=== PATIENT | male | born 1955 | race Caucasian/White ===

== ENCOUNTER 2024-08-09 18:06 | Emergency (ER) | payer MEDICARE, OTHER ==
[~2024-08-09] VITALS: Ht 172.7 cm; Wt 68.0 kg
[2024-08-09 18:38] LABS: APPEARANCE,URINE CLEAR (CLEAR); BILIRUBIN,URINE NEGATIVE (NEGATIVE); BLOOD, URINE 1+ Ery/uL (NEGATIVE); COLOR,URINE YELLOW (YELLOW); KETONES,URINE NEGATIVE (NEGATIVE); LEUKOCYTE ESTERASE ,URINE NEGATIVE (NEGATIVE); NITRITE, URINE NEGATIVE (NEGATIVE); PROTEIN,URINE NEGATIVE (NEGATIVE); UGLUCOSE NEGATIVE (NEGATIVE); UROBILINOGEN,URINE 0.2 EU/dL (0.2)
[2024-08-09 18:48] LABS: ADD URINE CULTURE NO; BACTERIA,URINE None seen /HPF (None Seen); MUCUS,URINE Few /LPF (None Seen); SQUAMOUS EPITHELIAL CELL,UR 0-2 /HPF (None Seen); WBC,URINE 0-2 /HPF (0-3)
[2024-08-09 18:57] LABS: BASOPHILS # (AUTO) 0.1 K/uL (0.0-0.2); BASOPHILS % (AUTO) 0.7 % (0.0-2.0); EOSINOPHILS # (AUTO) 0.3 K/uL (0.0-0.7); EOSINOPHILS % (AUTO) 2.5 % (0.0-6.0); HEMATOCRIT 38 % (39-51); HEMOGLOBIN 12.9 g/dL (13.5-17.5); LYMPHOCYTES # (AUTO) 3.9 K/uL (0.8-4.8); LYMPHOCYTES % (AUTO) 37.8 % (20.0-44.0); MEAN CORPUSCULAR HEMOGLOBIN 29 PG (26.0-33.0); MEAN CORPUSCULAR HGB CONC 34 g/dl (31.0-36.0); MEAN CORPUSCULAR VOLUME 87 fL (80-96); MONOCYTES # (AUTO) 0.8 K/uL (0.1-1.30); MONOCYTES % (AUTO) 7.3 % (2.0-12.0); NEUTROPHILS # (AUTO) 5.3 K/uL (1.8-8.9); NEUTROPHILS % (AUTO) 51.7 % (43.0-81.0); PLATELET COUNT (AUTO) 282 K/uL (150-450); RED BLOOD CELL COUNT(AUTO) 4.39 MIL/uL (4.5-6.0); RED CELL DISTRIBUTION WIDTH 14.3 % (11.5-15.0); WHITE BLOOD COUNT (AUTO) 10.3 K/uL (4.3-11.0)
[2024-08-09 19:12] LABS: ALANINE AMINOTRANSFERASE 24 U/L (12-78); ALBUMIN 3.6 g/dL (3.4-5.0); ALKALINE PHOSPHATASE 120 U/L (46-116); ASPARTATE AMINOTRANSFERASE 20 U/L (15-37); BILIRUBIN,DIRECT 0.1 mg/dL (0.0-0.2); BILIRUBIN,TOTAL 0.3 mg/dL (0.2-1.0); CALCIUM, SERUM 9.1 mg/dL (8.5-10.1); CARBON DIOXIDE 30 mmol/L (21-32); CHLORIDE 104 mmol/L (98-107); CREATININE 0.9 mg/dL (0.6-1.3); GLUCOSE 96 mg/dL (74-106); POTASSIUM 4.4 mmol/L (3.5-5.1); SODIUM SERUM 141 mmol/L (136-145); TOTAL PROTEIN, SERUM 7.4 g/dL (6.4-8.2); UREA NITROGEN, BLOOD 26 mg/dL (7-18)
[2024-08-09 19:17] LABS: ACETAMINOPHEN <10 ug/ml (10-30); ALCOHOL, BLOOD < 3 mg/dL (0-10); SALICYLATE 1.7 mg/dL (2.8-20.0)
[2024-08-09 22:33] LABS: AMPHETAMINE, URINE NEGATIVE (NEGATIVE); BARBITURATE, URINE NEGATIVE (NEGATIVE); BENZODIAZEPINE, URINE NEGATIVE (NEGATIVE); CANNABINOID, URINE NEGATIVE (NEGATIVE); COCCAINE, URINE NEGATIVE (NEGATIVE); OPIATE, URINE NEGATIVE (NEGATIVE); PHENCYCLIDINE SCREEN,URINE NEGATIVE (NEGATIVE)
[2024-08-09] MEDS ORDERED: LORAZEPAM INJ 2 MG/ML VIAL ONE (23:51)
[2024-08-09] MEDS: LORAZEPAM INJ 2 MG/ML VIAL IM ONE (23:59)
[2024-08-10 05:37] VITALS: TEMP 98.2
[2024-08-10] MEDS ORDERED: NICO1PAT45 TD (08:47)
[2024-08-10] MEDS ORDERED: QUET25TA PO (08:47)
[2024-08-10] MEDS ORDERED: MELA5TAB PO (08:47)
[2024-08-10] MEDS ORDERED: OLAN5TAB3 PO (08:47)
[2024-08-10] MEDS ORDERED: ACET-868 PO (08:47)
[2024-08-10] MEDS ORDERED: POLY17PO4 PO (08:47)
[2024-08-10] MEDS ORDERED: SENN8.6T19 PO (08:47)
[2024-08-10 10:16] VITALS: BP 122/76; O2SAT 97
== END 2024-08-10 10:18 ==
LOC: ER 18:15
DX: R45.6 Violent behavior (principal); F03.90 Unspecified dementia, unspecified severity, without behavioral disturbance, psychotic disturbance, mood disturbance, and anxiety; Z20.822 Contact with and (suspected) exposure to COVID-19
CPT/HCPCS: 99285; 96372; 85025; 80048; 80076; 81001; 36415; 87426; 80143; 80320; 80307; J2060; G0480

== ENCOUNTER 2024-09-12 13:18 | Inpatient (IN) | payer MEDICARE, OTHER ==
[~2024-09-12] VITALS: Ht 182.9 cm; Wt 72.6 kg
[~2024-09-12 13:18] MED LIST: ACET-868 PO; MELA5TAB PO; NICO1PAT45 TD; OLAN5TAB3 PO; POLY17PO4 PO; QUET25TA PO; SENN8.6T19 PO
[2024-09-12] MEDS ORDERED: LORA-258 PO (14:21)
[2024-09-12] MEDS ORDERED: DIVA-76 PO (14:21)
[2024-09-12] MEDS ORDERED: MAG-5 PO (14:21)
[2024-09-12] MEDS ORDERED: ZOLP5TAB2 PO (14:21)
[2024-09-12] MEDS ORDERED: MAGN400O6 PO (14:21)
[2024-09-12 14:59] LABS: BASOPHILS # (AUTO) 0.1 K/uL (0.0-0.2); BASOPHILS % (AUTO) 0.8 % (0.0-2.0); EOSINOPHILS # (AUTO) 0.3 K/uL (0.0-0.7); EOSINOPHILS % (AUTO) 3.4 % (0.0-6.0); HEMATOCRIT 40 % (39-51); HEMOGLOBIN 13.5 g/dL (13.5-17.5); LYMPHOCYTES # (AUTO) 3.7 K/uL (0.8-4.8); LYMPHOCYTES % (AUTO) 40.6 % (20.0-44.0); MEAN CORPUSCULAR HEMOGLOBIN 30 PG (26.0-33.0); MEAN CORPUSCULAR HGB CONC 34 g/dl (31.0-36.0); MEAN CORPUSCULAR VOLUME 88 fL (80-96); MONOCYTES # (AUTO) 0.5 K/uL (0.1-1.30); MONOCYTES % (AUTO) 5.7 % (2.0-12.0); NEUTROPHILS # (AUTO) 4.5 K/uL (1.8-8.9); NEUTROPHILS % (AUTO) 49.5 % (43.0-81.0); PLATELET COUNT (AUTO) 270 K/uL (150-450); RED BLOOD CELL COUNT(AUTO) 4.58 MIL/uL (4.5-6.0); RED CELL DISTRIBUTION WIDTH 14.5 % (11.5-15.0)
[2024-09-12 15:05] LABS: CALCIUM, SERUM 9.4 mg/dL (8.5-10.1); CARBON DIOXIDE 30 mmol/L (21-32); CHLORIDE 101 mmol/L (98-107); CREATININE 0.8 mg/dL (0.6-1.3); GLUCOSE 75 mg/dL (74-106); POTASSIUM 4.2 mmol/L (3.5-5.1); SODIUM SERUM 137 mmol/L (136-145); UREA NITROGEN, BLOOD 19 mg/dL (7-18)
[2024-09-12 15:12] LABS: ALANINE AMINOTRANSFERASE 30 U/L (12-78); ALBUMIN 3.8 g/dL (3.4-5.0); ALCOHOL, BLOOD < 3 mg/dL (0-10); ALKALINE PHOSPHATASE 124 U/L (46-116); ASPARTATE AMINOTRANSFERASE 23 U/L (15-37); BILIRUBIN,DIRECT 0.1 mg/dL (0.0-0.2); BILIRUBIN,TOTAL 0.4 mg/dL (0.2-1.0); TOTAL PROTEIN, SERUM 7.6 g/dL (6.4-8.2)
[2024-09-12 15:13] LABS: ACETAMINOPHEN <10 ug/ml (10-30); SALICYLATE 1.3 mg/dL (2.8-20.0)
[2024-09-12 16:23] LABS: APPEARANCE,URINE CLEAR (CLEAR); BILIRUBIN,URINE NEGATIVE (NEGATIVE); BLOOD, URINE NEGATIVE Ery/uL (NEGATIVE); COLOR,URINE YELLOW (YELLOW); KETONES,URINE NEGATIVE (NEGATIVE); LEUKOCYTE ESTERASE ,URINE NEGATIVE (NEGATIVE); NITRITE, URINE NEGATIVE (NEGATIVE); PH,URINE 6.5 (5.0-8.0); PROTEIN,URINE NEGATIVE (NEGATIVE); UGLUCOSE NEGATIVE (NEGATIVE); UROBILINOGEN,URINE 0.2 EU/dL (0.2)
[2024-09-12 16:52] LABS: AMPHETAMINE, URINE NEGATIVE (NEGATIVE); BARBITURATE, URINE NEGATIVE (NEGATIVE); BENZODIAZEPINE, URINE NEGATIVE (NEGATIVE); CANNABINOID, URINE NEGATIVE (NEGATIVE); COCCAINE, URINE NEGATIVE (NEGATIVE); OPIATE, URINE NEGATIVE (NEGATIVE); PHENCYCLIDINE SCREEN,URINE NEGATIVE (NEGATIVE)
[2024-09-12] MEDS ORDERED: ACETAMINOPHEN 325 MG TABLET PO PRN (21:30)
[2024-09-12] MEDS ORDERED: MAG HYDROX/AL HYDROX/SIMETH 30 ML UDC PO PRN (21:30)
[2024-09-12] MEDS ORDERED: LORAZEPAM 0.5 MG TABLET PO PRN (21:30)
[2024-09-12] MEDS ORDERED: MAGNESIUM HYDROXIDE 30 ML UDC PO PRN (21:30)
[2024-09-12] MEDS: BLOOD SUGAR DIAGNOSTIC 1 EACH STRIP IN ONE (21:53)
[2024-09-13] MEDS: TEMAZEPAM 7.5 MG CAPSULE PO PRN (00:43)
[2024-09-13 07:39] LABS: BASOPHILS # (AUTO) 0.1 K/uL (0.0-0.2); BASOPHILS % (AUTO) 0.8 % (0.0-2.0); EOSINOPHILS # (AUTO) 0.5 K/uL (0.0-0.7); EOSINOPHILS % (AUTO) 6.6 % (0.0-6.0); HEMATOCRIT 41 % (39-51); HEMOGLOBIN 13.8 g/dL (13.5-17.5); LYMPHOCYTES # (AUTO) 2.5 K/uL (0.8-4.8); MEAN CORPUSCULAR HEMOGLOBIN 29 PG (26.0-33.0); MEAN CORPUSCULAR HGB CONC 34 g/dl (31.0-36.0); MEAN CORPUSCULAR VOLUME 88 fL (80-96); MONOCYTES # (AUTO) 0.6 K/uL (0.1-1.30); NEUTROPHILS # (AUTO) 3.5 K/uL (1.8-8.9); NEUTROPHILS % (AUTO) 49.6 % (43.0-81.0); PLATELET COUNT (AUTO) 266 K/uL (150-450); RED BLOOD CELL COUNT(AUTO) 4.69 MIL/uL (4.5-6.0); WHITE BLOOD COUNT (AUTO) 7.1 K/uL (4.3-11.0)
[2024-09-13 07:53] LABS: CALCIUM, SERUM 8.9 mg/dL (8.5-10.1); CREATININE 0.8 mg/dL (0.6-1.3)
[2024-09-13 08:00] VITALS: BP 127/63; TEMP 97.6; O2SAT 98
[2024-09-13] MEDS: OLANZAPINE ZYDIS 5 MG TAB.RAPDIS PO SCH ×2 (09:00→21:32)
[2024-09-13] MEDS: OXCARBAZEPINE 150 MG TABLET PO SCH (09:00)
[2024-09-13 16:00] VITALS: BP 106/77; TEMP 97.9; O2SAT 98
[2024-09-13 20:00] VITALS: BP 123/66; TEMP 98.1; O2SAT 98
[2024-09-13 21:02] VITALS: BP 123/66; TEMP 98.1; O2SAT 98
[2024-09-13] MEDS: OLANZAPINE 10 MG VIAL IM STA (22:17)
[2024-09-14] MEDS: TEMAZEPAM 7.5 MG CAPSULE PO PRN (00:52)
[2024-09-14] MEDS: LORAZEPAM 0.5 MG TABLET PO PRN (03:03)
[2024-09-14 08:00] VITALS: BP 119/76; TEMP 97.9; O2SAT 98
[2024-09-14 16:00] VITALS: BP 135/83; TEMP 98.1; O2SAT 97
[2024-09-14] MEDS: OXCARBAZEPINE 150 MG TABLET PO SCH (17:20)
[2024-09-14 20:32] VITALS: BP 129/81; TEMP 98.1; O2SAT 97
[2024-09-15 08:00] VITALS: BP 104/73; TEMP 97.7; O2SAT 98
[2024-09-15 15:53] VITALS: BP 98/80; TEMP 97.8; O2SAT 98
[2024-09-15 20:19] VITALS: BP 108/65; TEMP 97.5; O2SAT 97
[2024-09-16 08:00] VITALS: BP 128/78; TEMP 98.7; O2SAT 97
[2024-09-16] MEDS: OLANZAPINE 10 MG VIAL IM ONE ×2 (10:03→17:09)
[2024-09-16 15:56] VITALS: BP 104/69; TEMP 98.6; O2SAT 96
[2024-09-16] MEDS: OLANZAPINE ZYDIS 5 MG TAB.RAPDIS PO SCH (15:56)
[2024-09-16] MEDS: OXCARBAZEPINE 150 MG TABLET PO SCH (15:56)
[2024-09-16] MEDS: HALOPERIDOL LACTATE INJ 5 MG/ML VIAL IM STA (19:15)
[2024-09-16] MEDS: diphenhydrAMINE HCL 50 MG/ML VIAL IM STA (19:15)
[2024-09-16 19:59] VITALS: BP 110/73; TEMP 98; O2SAT 100
[2024-09-16 20:55] VITALS: BP 122/82; TEMP 98.4; O2SAT 97
[2024-09-16 21:03] LABS: BASOPHILS % (AUTO) 0.3 % (0.0-2.0); EOSINOPHILS # (AUTO) 0.4 K/uL (0.0-0.7); EOSINOPHILS % (AUTO) 4.6 % (0.0-6.0); HEMATOCRIT 41 % (39-51); HEMOGLOBIN 13.7 g/dL (13.5-17.5); LYMPHOCYTES # (AUTO) 3.8 K/uL (0.8-4.8); LYMPHOCYTES % (AUTO) 47.9 % (20.0-44.0); MEAN CORPUSCULAR HEMOGLOBIN 29 PG (26.0-33.0); MEAN CORPUSCULAR HGB CONC 34 g/dl (31.0-36.0); MEAN CORPUSCULAR VOLUME 88 fL (80-96); MONOCYTES # (AUTO) 0.6 K/uL (0.1-1.30); MONOCYTES % (AUTO) 7.3 % (2.0-12.0); NEUTROPHILS # (AUTO) 3.2 K/uL (1.8-8.9); NEUTROPHILS % (AUTO) 39.9 % (43.0-81.0); PLATELET COUNT (AUTO) 248 K/uL (150-450); RED BLOOD CELL COUNT(AUTO) 4.66 MIL/uL (4.5-6.0); RED CELL DISTRIBUTION WIDTH 14.1 % (11.5-15.0)
[2024-09-16] MEDS: LORAZEPAM INJ 2 MG/ML VIAL IM ONE (21:07)
[2024-09-16 21:11] LABS: CALCIUM, SERUM 9.2 mg/dL (8.5-10.1); CREATININE 0.9 mg/dL (0.6-1.3); POTASSIUM 3.7 mmol/L (3.5-5.1)
[2024-09-16 21:16] LABS: ALBUMIN 3.9 g/dL (3.4-5.0); BILIRUBIN,TOTAL 0.4 mg/dL (0.2-1.0); TOTAL PROTEIN, SERUM 7.6 g/dL (6.4-8.2)
[2024-09-16] MEDS ORDERED: OLANZAPINE ZYDIS 5 MG TAB.RAPDIS PO SCH (22:00)
[2024-09-17 02:29] VITALS: BP 128/78; TEMP 98.4; O2SAT 98
[2024-09-17 08:00] VITALS: BP 125/88; TEMP 98.6; O2SAT 99
[2024-09-17] MEDS: risperiDONE 1 MG TABLET PO SCH (14:01)
[2024-09-17 16:00] VITALS: BP 111/76; TEMP 97.9; O2SAT 95
[2024-09-17] MEDS: OLANZAPINE ZYDIS 5 MG TAB.RAPDIS PO SCH (20:02)
[2024-09-17 20:08] VITALS: BP 123/85; TEMP 97.9; O2SAT 100
[2024-09-18 08:00] VITALS: BP 126/84; TEMP 98.7; O2SAT 99
[2024-09-18] MEDS: Z GUARD REMEDY 4 OZ OINT TP SCH (08:19)
[2024-09-18 16:00] VITALS: BP 114/88; TEMP 98.1; O2SAT 97
[2024-09-18] MEDS: OLANZAPINE ZYDIS 5 MG TAB.RAPDIS PO SCH (20:02)
[2024-09-18 20:37] VITALS: BP 107/89; TEMP 97.3; O2SAT 98
[2024-09-19 08:00] VITALS: BP 119/83; TEMP 97.9; O2SAT 100
[2024-09-19] MEDS: risperiDONE 1 MG TABLET PO ONE (11:00)
[2024-09-19 16:00] VITALS: BP 119/70; TEMP 97.5; O2SAT 97
[2024-09-19] MEDS: risperiDONE 1 MG TABLET PO SCH (16:34)
[2024-09-19 20:00] VITALS: BP 106/89; TEMP 97.5; O2SAT 94
[2024-09-19] MEDS: OLANZAPINE 5 MG TABLET PO SCH (21:52)
[2024-09-19] MEDS ORDERED: risperiDONE 1 MG TABLET PO SCH (22:00)
[2024-09-20 08:00] VITALS: BP 109/76; TEMP 97.7; O2SAT 96
[2024-09-20 20:00] VITALS: BP 124/79; TEMP 97.7; O2SAT 97
[2024-09-20 21:06] VITALS: BP 124/79; TEMP 97.7; O2SAT 97
[2024-09-21 08:00] VITALS: BP 110/64; TEMP 97.7; O2SAT 96
[2024-09-21 16:00] VITALS: BP 150/98; TEMP 98.1; O2SAT 97
[2024-09-21 20:00] VITALS: BP 100/74; TEMP 98.1; O2SAT 96
[2024-09-21 20:42] VITALS: BP 100/74; TEMP 98.1; O2SAT 96
[2024-09-22 08:00] VITALS: BP 119/80; TEMP 98.2; O2SAT 98
[2024-09-22 15:18] VITALS: BP 95/65; TEMP 98.6; O2SAT 98
[2024-09-22 20:10] VITALS: BP 101/71; TEMP 98.4; O2SAT 100
[2024-09-23 08:00] VITALS: BP 115/58; TEMP 98; O2SAT 96
[2024-09-23 16:00] VITALS: BP 95/75; TEMP 97.7; O2SAT 98
[2024-09-23 19:56] VITALS: BP 109/68; TEMP 98; O2SAT 98
[2024-09-24 08:00] VITALS: BP 99/60; TEMP 97.8; O2SAT 96
[2024-09-24 16:00] VITALS: BP 105/73; TEMP 97.7; O2SAT 98
[2024-09-24 20:13] VITALS: BP 112/71; TEMP 97.8; O2SAT 98
[2024-09-24] MEDS: ATORVASTATIN 10 MG TABLET PO SCH (21:11)
[2024-09-25 08:00] VITALS: BP 115/76; TEMP 98.2; O2SAT 96
== END 2024-09-25 13:30 | DRG 885 ==
LOC: ER 13:20 → GPS 20:05
PROVIDERS: ADMIT Psychiatry & Neurology Psychosomatic Medicine
PROC: 0HBRXZZ Excision of Toe Nail, External Approach (ICD-10-PCS; principal; 2024-09-18)
DX: F25.9 Schizoaffective disorder, unspecified (principal); G93.41 Metabolic encephalopathy; F01.54 Vascular dementia, unspecified severity, with anxiety; F29 Unspecified psychosis not due to a substance or known physiological condition; Z73.6 Limitation of activities due to disability; B35.1 Tinea unguium; E78.5 Hyperlipidemia, unspecified; L60.3 Nail dystrophy; Z79.899 Other long term (current) drug therapy; Z87.891 Personal history of nicotine dependence; Z20.822 Contact with and (suspected) exposure to COVID-19; F41.9 Anxiety disorder, unspecified; S90.212A Contusion of left great toe with damage to nail, initial encounter; X58.XXXA Exposure to other specified factors, initial encounter; Y93.89 Activity, other specified; Y92.129 Unspecified place in nursing home as the place of occurrence of the external cause
CPT/HCPCS: 36415; 70450-TC; 71045-TC; 80048-TC; 80053-TC; 80061-TC; 80076-TC; 82140-TC; 82962-TC; 85025-TC; 87081-TC; 97112-TC; 97116-TC; 97530-TC; 98960; G0480; J1200; J1630; J2060; J3490

== ENCOUNTER 2024-10-02 22:22 | Emergency (ER) | payer MEDICARE, OTHER ==
[~2024-10-02] VITALS: Ht 177.8 cm; Wt 64.9 kg
[~2024-10-02 22:22] MED LIST changes: +MAG-5 PO; +MAGN400O6 PO; -MELA5TAB PO; -NICO1PAT45 TD; -OLAN5TAB3 PO; -POLY17PO4 PO; -QUET25TA PO; -SENN8.6T19 PO
[2024-10-02 22:47] VITALS: TEMP 98.1
[2024-10-02 23:18] LABS: BASOPHILS # (AUTO) 0.1 K/uL (0.0-0.2); BASOPHILS % (AUTO) 0.8 % (0.0-2.0); EOSINOPHILS # (AUTO) 0.2 K/uL (0.0-0.7); EOSINOPHILS % (AUTO) 3.2 % (0.0-6.0); HEMATOCRIT 37 % (39-51); HEMOGLOBIN 12.5 g/dL (13.5-17.5); LYMPHOCYTES # (AUTO) 2.8 K/uL (0.8-4.8); MEAN CORPUSCULAR HEMOGLOBIN 29 PG (26.0-33.0); MEAN CORPUSCULAR HGB CONC 34 g/dl (31.0-36.0); MEAN CORPUSCULAR VOLUME 87 fL (80-96); MONOCYTES # (AUTO) 0.4 K/uL (0.1-1.30); MONOCYTES % (AUTO) 6.5 % (2.0-12.0); NEUTROPHILS # (AUTO) 3.1 K/uL (1.8-8.9); NEUTROPHILS % (AUTO) 47.5 % (43.0-81.0); PLATELET COUNT (AUTO) 262 K/uL (150-450); RED BLOOD CELL COUNT(AUTO) 4.26 MIL/uL (4.5-6.0); RED CELL DISTRIBUTION WIDTH 14.3 % (11.5-15.0); WHITE BLOOD COUNT (AUTO) 6.6 K/uL (4.3-11.0)
[2024-10-02 23:23] LABS: CALCIUM, SERUM 9.1 mg/dL (8.5-10.1); CARBON DIOXIDE 26 mmol/L (21-32); CHLORIDE 102 mmol/L (98-107); CREATININE 0.8 mg/dL (0.6-1.3); GLUCOSE 100 mg/dL (74-106); POTASSIUM 3.8 mmol/L (3.5-5.1); SODIUM SERUM 137 mmol/L (136-145); UREA NITROGEN, BLOOD 13 mg/dL (7-18)
[2024-10-02 23:29] LABS: ALANINE AMINOTRANSFERASE 26 U/L (12-78); ALBUMIN 3.5 g/dL (3.4-5.0); ALKALINE PHOSPHATASE 110 U/L (46-116); ASPARTATE AMINOTRANSFERASE 21 U/L (15-37); BILIRUBIN,DIRECT 0.1 mg/dL (0.0-0.2); BILIRUBIN,TOTAL 0.3 mg/dL (0.2-1.0)
[2024-10-02 23:32] LABS: ACETAMINOPHEN <10 ug/ml (10-30); ALCOHOL, BLOOD < 3 mg/dL (0-10); SALICYLATE 1.2 mg/dL (2.8-20.0)
[2024-10-03 00:41] LABS: APPEARANCE,URINE CLEAR (CLEAR); BILIRUBIN,URINE NEGATIVE (NEGATIVE); BLOOD, URINE NEGATIVE Ery/uL (NEGATIVE); COLOR,URINE YELLOW (YELLOW); KETONES,URINE NEGATIVE (NEGATIVE); LEUKOCYTE ESTERASE ,URINE NEGATIVE (NEGATIVE); NITRITE, URINE NEGATIVE (NEGATIVE); PROTEIN,URINE NEGATIVE (NEGATIVE); UGLUCOSE NEGATIVE (NEGATIVE); UROBILINOGEN,URINE 0.2 EU/dL (0.2)
[2024-10-03 01:09] LABS: AMPHETAMINE, URINE NEGATIVE (NEGATIVE); BARBITURATE, URINE NEGATIVE (NEGATIVE); BENZODIAZEPINE, URINE NEGATIVE (NEGATIVE); CANNABINOID, URINE NEGATIVE (NEGATIVE); COCCAINE, URINE NEGATIVE (NEGATIVE); OPIATE, URINE NEGATIVE (NEGATIVE); PHENCYCLIDINE SCREEN,URINE NEGATIVE (NEGATIVE)
[2024-10-03 03:50] VITALS: BP 120/73; O2SAT 97
== END 2024-10-03 05:32 ==
LOC: ER 22:27
DX: R45.6 Violent behavior (principal); F03.911 Unspecified dementia, unspecified severity, with agitation; Z20.822 Contact with and (suspected) exposure to COVID-19; Z79.899 Other long term (current) drug therapy
CPT/HCPCS: 36415; 80048-TC; 80076-TC; 85025-TC; 87081-TC; G0480

== ENCOUNTER 2025-02-11 19:29 | Inpatient (IN) | payer MEDICARE, OTHER ==
[~2025-02-11] VITALS: Ht 177.8 cm; Wt 66.2 kg
[2025-02-11] MEDS ORDERED: RISP1TAB97 PO (20:01)
[2025-02-11] MEDS ORDERED: BUSP5TAB3 PO (20:01)
[2025-02-11] MEDS ORDERED: ATOR20TA PO (20:01)
[2025-02-11] MEDS ORDERED: OXCA300T15 PO (20:01)
[2025-02-11] MEDS ORDERED: ARIP10TA9 PO (20:01)
[2025-02-11] MEDS ORDERED: RISP2TAB85 PO (20:01)
[2025-02-11 20:03] LABS: PLATELET COUNT (AUTO) 278 K/uL (150-450); RED BLOOD CELL COUNT(AUTO) 4.02 MIL/uL (4.5-6.0); RED CELL DISTRIBUTION WIDTH 14.6 % (11.5-15.0); WHITE BLOOD COUNT (AUTO) 7.6 K/uL (4.3-11.0)
[2025-02-11 20:10] LABS: CALCIUM, SERUM 8.8 mg/dL (8.5-10.1); CREATININE 1.0 mg/dL (0.6-1.3); SODIUM SERUM 136 mmol/L (136-145); UREA NITROGEN, BLOOD 30 mg/dL (7-18)
[2025-02-11 20:16] LABS: ASPARTATE AMINOTRANSFERASE 85 U/L (15-37); TOTAL PROTEIN, SERUM 7.4 g/dL (6.4-8.2)
[2025-02-11 20:43] LABS: APPEARANCE,URINE CLEAR (CLEAR); BLOOD, URINE Negative Ery/uL (NEGATIVE); LEUKOCYTE ESTERASE ,URINE Negative (NEGATIVE); NITRITE, URINE NEGATIVE (NEGATIVE); UGLUCOSE Negative (NEGATIVE)
[2025-02-11 20:45] LABS: ADD URINE CULTURE NO; SQUAMOUS EPITHELIAL CELL,UR None Seen /HPF (None Seen)
[2025-02-11 20:49] LABS: AMPHETAMINE, URINE NEGATIVE (NEGATIVE); BARBITURATE, URINE NEGATIVE (NEGATIVE); BENZODIAZEPINE, URINE NEGATIVE (NEGATIVE); CANNABINOID, URINE NEGATIVE (NEGATIVE); COCCAINE, URINE NEGATIVE (NEGATIVE); OPIATE, URINE NEGATIVE (NEGATIVE)
[2025-02-11 23:55] VITALS: BP 100/66; TEMP 97.5; O2SAT 97
[2025-02-12] MEDS ORDERED: ACETAMINOPHEN 325 MG TABLET PO PRN
[2025-02-12] MEDS ORDERED: MAGNESIUM HYDROXIDE 30 ML UDC PO PRN
[2025-02-12] MEDS ORDERED: LORAZEPAM 0.5 MG TABLET PO PRN
[2025-02-12] MEDS ORDERED: MAG HYDROX/AL HYDROX/SIMETH 30 ML UDC PO PRN
[2025-02-12] MEDS ORDERED: LORAZEPAM 1 MG TABLET PO PRN
[2025-02-12] MEDS ORDERED: TEMAZEPAM 7.5 MG CAPSULE PO PRN
[2025-02-12] MEDS: BLOOD SUGAR DIAGNOSTIC 1 EACH STRIP IN ONE (00:32)
[2025-02-12 08:00] VITALS: BP 97/63; TEMP 97.9; O2SAT 97
[2025-02-12 08:00] LABS: ASPARTATE AMINOTRANSFERASE 58.0 U/L (15-37); CALCIUM, SERUM 8.8 mg/dL (8.5-10.1); CREATININE 1.0 mg/dL (0.6-1.3); SODIUM SERUM 138.0 mmol/L (136-145); TOTAL PROTEIN, SERUM 7.2 g/dL (6.4-8.2); UREA NITROGEN, BLOOD 25.0 mg/dL (7-18)
[2025-02-12 08:08] LABS: LDL 71 mg/dL (0-99)
[2025-02-12] MEDS: PERMETHRIN 5% CRM 60 GM TUBE TP ONE (13:04)
[2025-02-12 16:00] VITALS: BP 100/77; TEMP 98.6; O2SAT 97
[2025-02-12] MEDS: VALPROIC ACID 250 MG/5 ML UDC PO SCH (16:31)
[2025-02-12 20:00] VITALS: BP 110/68; TEMP 97.8; O2SAT 96
[2025-02-12] MEDS ORDERED: ATORVASTATIN 10 MG TABLET PO SCH (22:00)
[2025-02-12] MEDS: TEMAZEPAM 7.5 MG CAPSULE PO PRN (23:56)
[2025-02-13 08:00] VITALS: BP 106/65; TEMP 98.1; O2SAT 96
[2025-02-13 16:00] VITALS: BP 100/65; TEMP 98.4; O2SAT 95
[2025-02-13 20:03] VITALS: BP 100/61; TEMP 98.3; O2SAT 95
[2025-02-14 08:00] VITALS: BP 106/72; TEMP 98.2; O2SAT 90
[2025-02-14 15:59] VITALS: BP 95/67; TEMP 97.7; O2SAT 96
[2025-02-14 20:42] VITALS: BP 105/77; TEMP 97.7; O2SAT 95
[2025-02-15] MEDS ORDERED: Z GUARD REMEDY 4 OZ OINT TP PRN (06:30)
[2025-02-15 08:00] VITALS: BP 113/68; TEMP 97.7; O2SAT 97
[2025-02-15] MEDS: ENSURE ENLIVE CHOC 237 ML CAN PO SCH (08:24)
[2025-02-15] MEDS: Z GUARD REMEDY 4 OZ OINT TP SCH (08:25)
[2025-02-15 16:00] VITALS: BP 115/86; TEMP 97.8; O2SAT 96
[2025-02-15 20:15] VITALS: BP 105/74; TEMP 98.2; O2SAT 96
[2025-02-16 08:00] VITALS: BP 105/51; TEMP 97.6; O2SAT 96
[2025-02-16 15:56] VITALS: BP 100/76; TEMP 98.1; O2SAT 96
[2025-02-16 20:14] VITALS: BP 96/65; TEMP 98.1; O2SAT 96
[2025-02-17 08:30] VITALS: BP 120/67; TEMP 97.6; O2SAT 98
[2025-02-17 16:00] VITALS: BP 98/84; TEMP 98.4; O2SAT 97
[2025-02-17 19:44] VITALS: BP 110/67; TEMP 97.8; O2SAT 98
[2025-02-18 08:00] VITALS: BP 95/55; TEMP 97.8; O2SAT 96
[2025-02-18] MEDS: MIDODRINE HCL (5MG) 5 MG TABLET PO SCH (10:28)
[2025-02-18 11:24] VITALS: BP 106/64
[2025-02-18 16:08] VITALS: BP 101/79; TEMP 98.4; O2SAT 96
[2025-02-18 19:49] VITALS: BP 104/75; TEMP 98; O2SAT 95
[2025-02-19 08:00] VITALS: BP 136/79; TEMP 98.1; O2SAT 97
[2025-02-19 16:00] VITALS: BP 100/73; TEMP 98.6; O2SAT 97
[2025-02-19 20:00] VITALS: BP 95/76; TEMP 98.4; O2SAT 97
[2025-02-19] MEDS: PERMETHRIN 5% CRM 60 GM TUBE TP ONE (20:16)
[2025-02-20 08:00] VITALS: BP 106/62; TEMP 98; O2SAT 98
[2025-02-20 16:00] VITALS: BP 104/68; TEMP 97.9; O2SAT 100
[2025-02-20 20:00] VITALS: BP 113/78; TEMP 98; O2SAT 99
[2025-02-21 08:00] VITALS: BP 100/59; TEMP 97.7; O2SAT 98
[2025-02-21 16:17] VITALS: BP 101/69; TEMP 97.3; O2SAT 98
[2025-02-21 21:00] VITALS: BP 116/70; TEMP 98; O2SAT 99
[2025-02-22 16:00] VITALS: BP 102/66; TEMP 98; O2SAT 96
[2025-02-22 20:16] VITALS: BP 107/63; TEMP 98.2; O2SAT 98
[2025-02-23 07:47] VITALS: BP 100/59; TEMP 98; O2SAT 95
[2025-02-23 16:00] VITALS: BP 105/68; TEMP 98.1; O2SAT 98
[2025-02-23 21:01] VITALS: BP 106/72; TEMP 98; O2SAT 97
[2025-02-24 07:45] VITALS: BP 100/66; TEMP 97.7; O2SAT 98
[2025-02-24 14:57] VITALS: BP 102/64; TEMP 98.1; O2SAT 98
[2025-02-24 19:35] VITALS: BP 108/79; TEMP 98.3; O2SAT 99
[2025-02-25 08:00] VITALS: BP 122/87; TEMP 97.8; O2SAT 96
[2025-02-25 12:49] VITALS: BP 122/87
== END 2025-02-25 13:40 | DRG 885 ==
LOC: ER 19:44 → GPS 22:56
PROVIDERS: ADMIT Nurse Practitioner Psychiatric/Mental Health; ATTEND Nurse Practitioner Acute Care
DX: F25.0 Schizoaffective disorder, bipolar type (principal); F29 Unspecified psychosis not due to a substance or known physiological condition; E78.5 Hyperlipidemia, unspecified; F03.90 Unspecified dementia, unspecified severity, without behavioral disturbance, psychotic disturbance, mood disturbance, and anxiety; Z20.822 Contact with and (suspected) exposure to COVID-19; Z73.6 Limitation of activities due to disability; F39 Unspecified mood [affective] disorder; R74.01 Elevation of levels of liver transaminase levels
CPT/HCPCS: 36415; 80048-TC; 80053-TC; 80061-TC; 80076-TC; 80164-TC; 81001; 85025-TC; 87081-TC; 97110-TC; 97116-TC; 97530-TC